=== PATIENT | female | born 1975 | race Caucasian/White ===

== ENCOUNTER 2021-07-18 12:50 | Emergency (ER) | payer OTHER, MEDICAID, SELFPAY ==
[2021-07-18 13:31] VITALS: BP 138/91; PULSE 85; RESP 18; TEMP 36.7; O2SAT 96; BMI 18.5
--- NOTE | 2021-07-18 13:48 | XR_ITS ---
WS: [id number] PORTABLE CHEST HISTORY: cough COMPARISON: 07/06/2012 Lungs are clear and well expanded. No pleural effusion or pneumothorax. Cardiac size: Normal. Mediastinum/Aorta: Normal mediastinum. No osseous abnormality seen. XR/XR chest 1V portable [id number] IMPRESSION: Unremarkable portable chest.
--- NOTE | 2021-07-18 15:08 | W.ED.GENADLT ---
HPI - General Adult General: Chief complaint: General Medical Stated complaint: cold sx, coughing Time Seen by Provider: 07/18/21 14:41 Source: patient and family () Mode of arrival: ambulatory Limitations: no limitations History of Present Illness: HPI narrative: Patient is a 46-year-old female presents to ED today along with her for a complaint of a chronic cough/throat clearing. Patient tells me she has had symptoms for approximately 2 to 3 months now. She states she constantly feels like she has phlegm in her throat and bronchus that she constantly needs to cough and try to get up . Patient states she has been seen for this previously and told it could be secondary to allergies. She tried a trial of OTC antihistamines as well as intranasal corticosteroids without relief. She does not complain of any rhinorrhea or sinus congestion. She denies postnasal drainage. Patient states she does have a history of asthma but is controlled with and rarely requires her albuterol inhaler. She was also told it could be secondary to asthma so she has been trying her albuterol inhaler without much relief. Interestingly enough she states when she lays down flat the drainage seems to dissipate and states she is able to sleep rather well at night. Patient does not complain of acid reflux or GERD-like symptoms. Symptoms are not affected by eating. She does not complain of chest pain, shortness of breath, difficulty breathing. Has never had an episode of hemoptysis. No fb sensation or lump in throat . She has not noticed any neck pain/swelling. She has also tried OTC expectorants and decongestants without much relief. Patient is not on an JOANN inhibitor. She is not a smoker. Her PCP was Gonsalo Mcnulty PA-C but he has recently retired. Onset (ago): month(s) Relieving factors: none Exacerbating factors: none Associated symptoms: Deny chest pain, dyspnea, headache(s), malaise, nausea, rash or vomiting Treatments prior to arrival: other (otc allergy meds, intranasal steroids, albuterol inhaler ) Review of Systems Const: Denies: fever(s), chills, body aches, change in appetite, fatigue or malaise Eyes: Denies: change in vision, blurry vision, photophobia, floaters or seeing flashes ENMT: Denies: throat pain, uvular edema, enlarged tonsils, odynophagia, hoarseness, mouth pain, swelling of lips/tongue, oral sores, dental pain, ear discharge, nasal discharge, nasal congestion, post nasal drip or sinus pain Card: Denies: chest pain Resp: Reports: productive cough and non-productive cough; Denies: dyspnea, wheezing, stridor, pain on inspiration, change in phlegm color, hemoptysis or chest congestion GI: Denies: abdominal pain, nausea, vomiting or diarrhea Musc: Denies: neck pain Skin/Breast: Denies: rash Neuro: Denies: headache(s) Physical Exam Const: COMMON NORMALS: no acute distress, average body habitus, patient oriented x3, no limitations, healthy appearing, alert and well nourished GENERAL APPEARANCE: cooperative HENMT: COMMON NORMALS: normocephalic, atraumatic, hearing grossly normal bilaterally, external ears normal, EAC's normal, TM's normal bilaterally, Normal external nose present, Normal nasal mucous membranes and turbinates present, moist oral mucous membranes, oropharynx normal, dentition normal and gingiva normal HEAD & SCALP: normal to inspection, normocephalic and atraumatic FACE & SINUS: normal facial exam and sinuses nontender NOSE: Normal external nose present and Normal nasal mucous membranes and turbinates present EXTERNAL EAR: Yes external ears normal EXTERNAL AUDITORY CANAL: EAC's normal TYMPANIC MEMBRANE: TM's normal bilaterally MOUTH: Normal oral and palatal mucosa present, lip normal and tongue normal THROAT: posterior oropharynx normal, tonsils normal and uvula midline; no uvular edema Neck/C-Spine: COMMON NORMALS: full ROM, no lymphadenopathy, no meningeal signs and Thyroid normal GENERAL: Yes normal visual inspection, No anterior neck swelling and No submandibular swelling THYROID: Thyroid normal Resp: COMMON NORMALS: normal respiratory effort and clear to auscultation bilaterally AUSCULTATION: clear to auscultation bilaterally Cardio: COMMON NORMALS: regular rate and regular rhythm RATE: regular rate RHYTHM: regular rhythm Neuro: COMMON NORMALS: patient oriented x3 SENSORIUM/ORIENTATION: Yes alert MENINGEAL SIGNS: Yes no meningeal signs Course Vital Signs: Vital signs: Vital Signs Temperature 98.1 F 07/18/21 13:31 Pulse Rate 85 07/18/21 13:31 Respiratory Rate 18 07/18/21 13:31 Blood Pressure 138/91 07/18/21 13:31 Pulse Oximetry 96 07/18/21 13:31 MDM - General Adult MDM Narrative: Medical decision making narrative: Patient appears in no acute distress apart from she does feel very anxious and distraught over the chronicity of the symptoms. Her vital signs are stable. CXR is normal. We discussed most common reasons for chronic cough including postnasal drip, asthma, GERD, bronchitis, and psychogenic. Again she is not on an JOANN inhibitor nor is she a smoker. She appears to have tried adequate trials of allergy medications without much relief. She doesn't really have any symptoms to suggest GERD. Certainly her asthma could potentially be a part of it. Could be psychogenic but explained how that is usually a diagnosis of exclusion. CXR normal. Recommend she follow up with PCP (another provider in their office since he is retired) for further evaluation. Other tests that could be performed later include CT scan, esophagoscopy/pH probe monitoring, bronchoscopy, etc. Patient is stable from an ED standpoint for DC. Imaging Data^: CXR: Radiologist's impression: [address] [place] [address] XRay Report Signed Patient: Cecille Hurst Unit #: [id number] : [id number] Age/Sex: 46 / F ADM Date: 07/18/21 Loc: ER Room/Bed: Attending Dr: Ordering Provider/Ordering MD: Mikayla Sanford Date of Service: 07/18/21 Procedure(s): XR chest 1V portable [id number] Accession Number(s): [id number] Report Number: [id number] WS: [id number] PORTABLE CHEST HISTORY: cough COMPARISON: 07/06/2012 Lungs are clear and well expanded. No pleural effusion or pneumothorax. Cardiac size: Normal. Mediastinum/Aorta: Normal mediastinum. No osseous abnormality seen. XR/XR chest 1V portable [id number] IMPRESSION: Unremarkable portable chest. Dictated By: Vika Barrett DO Signed By: Vika Barrett DO Signed Date/Time: 07/18/211425 DD/ 25 Discharge Plan Discharge Patient Disposition: Home Clinical Impression: Chronic throat clearing Condition: Stable Prescriptions: New promethazine-codeine 6.25-10 mg/5 mL syrup 5 ml PO Q6H PRN (Reason: cough) Qty: 118 RF: 0 Discharge Orders: Discharge ED (Routine); Ordered 07/18/21 Ordered By: Mikayla Sanford Coding Level of Care Code ED [facility] Medicine for Chg Fwd Exam Detailed
== END 2021-07-18 16:01 | disposition home or self-care (01) ==
PROVIDERS: Emergency Provider Physician Assistant
DX: R05.3 Chronic cough (principal)
CPT/HCPCS: 71045; 99282

== ENCOUNTER 2022-03-12 09:06 | Outpatient (CLI) | payer OTHER, MEDICAID, SELFPAY ==
--- NOTE | 2022-03-12 09:16 | MM_ITS ---
WS: [id number] BILATERAL SCREENING DIGITAL BREAST TOMOSYNTHESIS MAMMOGRAM WITH CAD HISTORY: SCREENING COMPARISON: 10/17/2020 Bilateral CC and MLO views with tomosynthesis and synthetic mammography submitted. Computer aided det ection analyzed. Breast composition: The breasts are heterogeneously dense, which may obscure small masses. No suspici ous masses, microcalcifications or architectural distortion. Benign lucent centered calcification rebeka tral LEFT breast. MM/[place] [id number] IMPRESSION: BI-RADS: 2-Benign FOLLOW UP: 1 Year Follow-up
== END 2022-03-12 09:07 | disposition home or self-care (01) ==
PROVIDERS: PCP Family Medicine; Visit Provider Family Medicine
DX: Z12.31 Encounter for screening mammogram for malignant neoplasm of breast (principal)
CPT/HCPCS: 77063; 77067

== ENCOUNTER 2023-05-07 11:47 | Outpatient (CLI) | payer OTHER, MEDICAID, SELFPAY ==
--- NOTE | 2023-05-07 11:54 | MM_ITS ---
WS: [id number] BILATERAL 3D TOMOSYNTHESIS DIGITAL SCREENING MAMMOGRAPHY WITH CAD CLINICAL INFORMATION: SCREENING HISTORY: Screening mammogram. No current complaints. COMPARISON: None. TECHNIQUE: Bilateral CC and MLO views. FINDINGS: The breasts are composed of heterogeneous fibroglandular density tissue, which can limit the detectio n of small underlying mass lesions. No suspicious mass, asymmetry, calcifications, or architectural d istortion. No evidence of malignancy. Punctate and lucent centered calcifications. IMPRESSION: MM/[place] [id number] BI-RADS: 2-Benign FOLLOW UP: 1 Year Follow-up Recommend return to annual screening mammography.
== END 2023-05-07 11:48 | disposition home or self-care (01) ==
LOC: RAD 11:48
PROVIDERS: PCP Family Medicine; Visit Provider Family Medicine
DX: Z12.31 Encounter for screening mammogram for malignant neoplasm of breast (principal)
CPT/HCPCS: 77063; 77067

== ENCOUNTER 2024-05-08 09:06 | Outpatient (CLI) | payer OTHER, SELFPAY ==
--- NOTE | 2024-05-08 09:10 | MM_ITS ---
WS: [id number] BILATERAL SCREENING DIGITAL TOMOSYNTHESIS MAMMOGRAM WITH CAD HISTORY: SCREENING COMPARISON: 05/07/2023, 03/12/2022 Bilateral CC and MLO views with tomosynthesis and synthetic mammography submitted. Computer aided det ection analyzed. Breast composition: The breasts are heterogeneously dense, which may obscure small masses. No suspici ous masses, microcalcifications or architectural distortion. Benign calcification central LEFT breast . MM/MM scr BI tomosynthesis [id number] IMPRESSION: BI-RADS: 2 - Benign FOLLOW UP: 1 Year Follow-up
== END 2024-05-08 09:07 | disposition home or self-care (01) ==
LOC: RAD 09:08
PROVIDERS: PCP Family Medicine; Visit Provider Nurse Practitioner Family
DX: Z12.31 Encounter for screening mammogram for malignant neoplasm of breast (principal); R92.333 Mammographic heterogeneous density, bilateral breasts; R92.1 Mammographic calcification found on diagnostic imaging of breast
CPT/HCPCS: 77063; 77067

== ENCOUNTER 2025-05-25 13:18 | Outpatient (CLI) | payer OTHER, SELFPAY ==
--- NOTE | 2025-05-25 13:28 | MM_ITS ---
WS: [id number] BILATERAL 3D TOMOSYNTHESIS DIGITAL SCREENING MAMMOGRAPHY WITH CAD CLINICAL INFORMATION: SCREENING HISTORY: Screening mammogram. No current complaints. COMPARISON: 2023 TECHNIQUE: Bilateral CC and MLO views. FINDINGS: The breasts are composed of heterogeneous fibroglandular density tissue, which can limit the detection of small underlying mass lesions. No suspicious mass, asymmetry, calcifications, or architectural distortion. No evidence of malignancy. MM/MM scr tomosynthesis [id number] IMPRESSION: DENSITY: The breasts are heterogeneously dense, which may obscure small masses. BI-RADS: 1 - Negative FOLLOW UP: 1 Year Follow-up Recommend return to annual screening mammography.
== END 2025-05-25 13:19 | disposition home or self-care (01) ==
LOC: RAD 13:21
PROVIDERS: PCP Family Medicine; Visit Provider Family Medicine
DX: Z12.31 Encounter for screening mammogram for malignant neoplasm of breast (principal); R92.323 Mammographic fibroglandular density, bilateral breasts; R92.333 Mammographic heterogeneous density, bilateral breasts
CPT/HCPCS: 77063; 77067